=== PATIENT | female | born 1940 | race Caucasian/White ===

== ENCOUNTER 2018-10-12 18:02 | Inpatient (IN) | payer MEDICARE, OTHER ==
[~2018-10-12] VITALS: Ht 152.4 cm; Wt 49.7 kg
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
[2018-10-12] MEDS ORDERED: FEXOFENADINE H180 MG PO (19:52)
[2018-10-12] MEDS ORDERED: ATIVAN0.5 MG PO (19:52)
[2018-10-12] MEDS ORDERED: ASCORBIC ACID500 MG PO (19:52)
[2018-10-12] MEDS ORDERED: MELATONIN 3 MG1 TAB PO (19:54)
[2018-10-12] MEDS ORDERED: DEPAKOTE125 MG PO (19:54)
[2018-10-12] MEDS ORDERED: MULTI-DAY VITAM1 TAB PO (19:55)
[2018-10-12] MEDS ORDERED: VITAMIN B-6100 MG PO (19:55)
[2018-10-12] MEDS ORDERED: RISPERDAL0.25 MG PO (19:56)
[2018-10-12] MEDS ORDERED: SENNA LAXATIVE8.6 MG PO (19:57)
[2018-10-12] MEDS ORDERED: VITAMIN D31000 UNIT PO (19:57)
[2018-10-12] MEDS ORDERED: PROMOD LIQUID P30 M1 PO (19:58)
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
[2018-10-13 07:09] LABS: BASOPHILS 0.2 % (0-2); EOSINOPHILS 1.7 % (0-7); HEMOGLOBIN 12.3 g/dL (12-16); IMMATURE GRANULOCYTES 0.2 % (0-5); LYMPHOCYTES 33.7 % (15-50); MCH 30.8 pg (26.0-34.0); MCHC 34.2 g/dL (31.0-37.0); MEAN PLATELET VOLUME 9.8 fL (7.4-10.4); MONOCYTES 14.8 % (2-11); NEUTROPHILS 49.4 % (40-80); PLATELET COUNT 157 10x3/uL (130-400); RDW 14.4 % (11.5-14.5); WBC 6.3 10x3/uL (4.8-10.8)
[2018-10-13 08:46] LABS: ALBUMIN 2.7 g/dL (3.4-5.0); ALKALINE PHOSPHATASE 54 U/L (46-116); ALT (SGPT) 20 U/L (10-68); BILIRUBIN - TOTAL 0.49 mg/dL (0.2-1.3); CALC OSMOLALITY 280 mosm/kg (275-300); CALCIUM 8.4 mg/dL (8.5-10.1); CARBON DIOXIDE 28.1 mmol/L (21.0-32.0); CHLORIDE - SERUM 106 mmol/L (98-107); CHOL - HDL RATIO 2.1 ratio (2.3-4.1); CHOLESTEROL, TOTAL 122 mg/dL (0-200); CREATININE - SERUM 0.7 mg/dL (0.6-1.3); GLUCOSE 86 mg/dL (74-106); HDL CHOLESTEROL 59 mg/dL (32-96); LDL CHOLESTEROL 54 mg/dL (0-100); LDL-HDL RATIO 0.9 ratio (1.5-3.5); POTASSIUM - SERUM 3.6 mmol/L (3.5-5.1); PROTEIN - SERUM 5.7 g/dL (6.4-8.2); SODIUM 140 mmol/L (136-145); THYROID STIMULATING HORMONE 4.69 uIU/mL (0.36-3.74); TRIGLYCERIDE 45 mg/dL (30-200); UREA NITROGEN 20 mg/dL (7-18); VALPROIC ACID (DEPAKOTE) 16.1 ug/mL (50.0-100.0); eGFR NON AFRICAN AMERICAN 85 mL/min (90-120)
[2018-10-13 10:47] VITALS: BP 113/79
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
--- NOTE | 2018-10-13 14:30 | NUR ---
PATIENT BECAME AGGRESSIVE WITH STAFF DURING RE-DIRECTION.
[2018-10-13 20:08] VITALS: BP 102/70
--- NOTE | 2018-10-13 23:39 | NUR ---
B.) PATIENT IS ALERT AND ORIENTED TO SELF ONLY. SHE IS VERY CONFUSED AND HAS A DIFFICULT TIME WITH HER SPEECH. SHE SPEAKS IN NEOLGISMS AND OCCASIONALY HAS WORD SALAD. I.) REDIRECTED AND REORIENTED SEVERAL TIMES. R.) PATIENT REMAINS CONFUSED AND BECOME AGGITATED WHEN SHE CANNOT GET HER WORDS TO COME OUT APPROPRIATELY. WILL CONTINUE TO MONITOR. P.) CONTINUE PLAN OF CARE
[2018-10-14 06:09] LABS: RAPID PLASMA REAGIN Non Reactive (Non Reactive)
--- NOTE | 2018-10-14 09:36 | NUR ---
RECEIVED PATIENT IN DINING ROOM FOR B'FAST, QUIET, CALM, CONFUSED, BECOMES AGITATED WITH RE-DIRECTION. MEDS ADMIN PER ORDERS WITH COMPLETE MED COMPLIANCE NOTED. COOPERATIVE WITH PLAN OF CARE. CONT POC DIRECTED.
[2018-10-14 10:23] VITALS: BP 117/70
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
--- NOTE | 2018-10-14 14:13 | NUR ---
PACING ABOUT UNIT EXIT-SEEKING.
--- NOTE | 2018-10-14 18:43 | NUR ---
THIS NURSE ATTEMPTED REDIRECT PATIENT FROM ANOTHER PATIENT WHO WAS ON THE PHONE. PATIENT BEGAN TO BECOME AGRRESION WITH THIS NURSE. 2X STAFF MEMBERS ASSESSED PATIENT INTO CHAIR. HALDOL 2 MG AND ATIVAN 0.5 MG GIVEN IM PER DR. DE LA TORRE ORDER IN LD. PATIENT TOLERATED WELL. PATIENT IS IN RECLINER CHAIR WITH ALARM FOR SAFETY.
[2018-10-14 21:27] VITALS: BP 132/81
--- NOTE | 2018-10-14 21:28 | NUR ---
PATIENT IS CONFUSED, LABILE, DIFFUCULT WITH DIRECTIONS, RECEIVED PRN ON PREVIOUS SHIFT WITH GOOD RESULTS, COMPLIANT WITH MEDS. WILL FOLLOW POC
[2018-10-15 04:06] VITALS: Ht 152.4 cm; Wt 49.7 kg
[2018-10-15 07:35] VITALS: BP 120/80
[2018-10-15 09:04] LABS: T4 THYROXIN - FREE 1.21 ng/dL (0.76-1.46); THYROID STIMULATING HORMONE 2.91 uIU/mL (0.36-3.74)
--- NOTE | 2018-10-15 09:19 | NUR ---
REC'D PT SITTING IN CHAIR WITH EYES CLOSED. RESP EVEN AND NONLABORED. PT IS UNSTEADY DUE TO PRN MEDICATION ON 10/15/18. PT IS IN RECLINER CHAIR WITH CHAIR ALARM IN PLACE. NO ACUTE DISTRESS NOTED. MED COMPLIANT. WILL CONT PLAN OF CARE.
--- NOTE | 2018-10-15 11:59 | PN ---
PATIENT:MIGUEL ANGEL BECERRA MEDICAL RECORD: [id number] LOCATION:NeshaIvánANIBAL Cardenas112 ADMISSION DATE: 10/12/18 PROGRESS NOTE DATE OF SERVICE: 10/14/2018 SUBJECTIVE: The patient's case was discussed with staff. She has no new complaint. OBJECTIVE: The patient is very restless and difficult to redirect. She has virtually no insight about her situation. ASSESSMENT: No change in diagnoses. PLAN: The patient will be maintained on Zyprexa. I am going to discontinue the Risperdal and Depakote. I am going to start her on a low dose of Klonopin because of her anxiety. She will be monitored for clinical changes associated with its use. TRANSINT:[id number] Voice Confirmation ID: [id number] DOCUMENT ID: [id number] ODETTE DE LA TORRE MD at 1159 CC: [id number] DICTATION DATE: 10/14/18 1205 FELT MACHINE MECHANIC: 10/14/18 1313 ADM IN [address] [place] [address]
--- NOTE | 2018-10-15 20:02 | NUR ---
PATIENT RECEIVED ATIVAN IM DUE TO EXTREME ANXIETY AND HITTING, KICKING AND SCRATCHING MHT. WILL MONITOR.
--- NOTE | 2018-10-15 21:45 | NUR ---
PATIENT HAD GOOD RESULTS FROM PRN ATIVAN INJECTION, PATIENT IS RESTING WELL. WILL FOLLOW POC
[2018-10-15 21:54] VITALS: BP 130/70
--- NOTE | 2018-10-16 07:30 | NUR ---
REC'D PT IN RECLINING CHAIR. RESPONDS TO VERBAL STIMULI. CALM AND COOPERATIVE WITH ASSESSMENT. MED COMPLIANT. NO AGGRESSION NOTED. WILL CPOC.
[2018-10-16 08:01] VITALS: BP 108/64
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
[2018-10-16 20:47] VITALS: BP 130/75
--- NOTE | 2018-10-16 21:24 | NUR ---
RECEIVED IN DAYROOM. SITTING IN A RECLINING CHAIR. RESLTESS. ATTEMPTS TO STAND WITHOUT ASSIST. NO SIGNS OF AGGRESSION. REDIRECT AND REORIENT NEEDED. CONTINUES TO SIT IN RECLINER. CONTINUE PLAN OF CARE
[2018-10-17 07:00] VITALS: BP 120/82
--- NOTE | 2018-10-17 09:52 | NUR ---
PT IS AWAKE AND ALERT TO PERSON ONLY. CALM AND COOPERATIVE WITH ASSESSMENT. MED COMPLIANT. FALL PRECAUTIONS IN PLACE. WILL CPOC.
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
--- NOTE | 2018-10-17 19:31 | NUR ---
PT IS VERY AGGRESSIVE WITH STAFF. PT IS HITTING, KICKING, AND YELLING AT STAFF. UNABLE TO REDIRECT PER STAFF. PRN ATIVAN 0.5 MG IM GIVEN PER DR. DE LA TORRE. WILL CONTINUE TO MONITOR.
--- NOTE | 2018-10-17 21:04 | NUR ---
RECEIVED IN DAYROOM. SITTING IN A CHAIR WITH PEERS AT HER SIDE. CALM AND COOPERATIVE WITH CARE AND ASSESSMENT. NO SIGNS OF AGGRESSION. REDIRECT AND REORIENT NEEDED. CONTINUES TO SIT QUIETLY. CONTINUE PLAN OF CARE
[2018-10-17 22:23] VITALS: BP 103/63
[2018-10-18 08:30] VITALS: BP 109/67
--- NOTE | 2018-10-18 09:30 | NUR ---
RECEIVED PATIENT IN DINING ROOM FOR B'FAST, VERY DROWSY, QUIET. MEDS ADMIN PER ORDERS WITH COMPLETE MED COMPLIANCE NOTED. COOPERATIVE WITH CARE AT THIS TIME, NO AGGRESSION NOTED. CONT POC INCLUDING MEDS AND GROUP THERAPY ORDERED.
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
--- NOTE | 2018-10-18 13:22 | NUR ---
PATIENT KICKING STAFF AND YELLING, UNABLE TO RE-DIRECT X 3 ATTEMPTS. ATIVAN 0.5 MG ADMIN IM. JON WELL.
--- NOTE | 2018-10-18 20:17 | NUR ---
RECEIVED IN DAYROOM. SITTING IN A CHAIR WITH PEERS AT HER SIDE. SOCIALIZING AT TIMES. CALM AND COOPERATIVE WITH CARE AND ASSESSMENT. NO SIGNS OF AGGRESSION. REDIRECT AND REORIENT NEEDED. RESTING QUIETLY IN A CHAIR AT THIS TIME. CONTINUE PLAN OF CARE
[2018-10-18 20:23] VITALS: BP 114/69
--- NOTE | 2018-10-19 10:17 | NUR ---
RECEIVED PATIENT IN DINING ROOM FOR B'FAST, ALERT, CALM, CONFUSED, PACING, UNABLE TO SPEAK COMPLETE SENTENCES. NO AGGRESSION. MEDS ADMIN PER ORDERS WITH COMPLETE MED COMPLIANCE NOTED. COMPLIANT WITH CARE, REDIRECTABLE. CONT POC DIRECTED.
[2018-10-19 10:59] VITALS: BP 110/70
--- NOTE | 2018-10-19 15:32 | PN ---
PATIENT:MIGUEL ANGEL BECERRA MEDICAL RECORD: [id number] LOCATION:ARPIT Cardenas112 ADMISSION DATE: 10/12/18 PROGRESS NOTE DATE OF SERVICE: 10/18/2018 OBJECTIVE: The patient slept well last night. She ate reasonably well yesterday. ASSESSMENT: No change in diagnoses. PLAN: The patient is a little sedated today. I am going to hold the Klonopin today and we will monitor her for behavioral changes. TRANSINT:[id number] Voice Confirmation ID: [id number] DOCUMENT ID: [id number] ODETTE DE LA TORRE MD at 1532 CC: [id number] DICTATION DATE: 10/18/18 1124 CANVAS SHRINKER: 10/18/18 1138 ADM IN [id number] [place] [id number]
--- NOTE | 2018-10-19 21:35 | NUR ---
PATIENT IS VERY CONFUSED. CROSSES BOUNDARIES. HAS TO BE REDIRECTED CONSTANTLY. CRUSHED MEDS. CAN NOT MAKE NEEDS KNOWN.
--- NOTE | 2018-10-20 10:30 | NUR ---
Team Treatment Review: Diet: Regular Diet PO Intake: 46% per 9 meals Wt: 107 on 10/16 (recommend new recorded wt) Meds: Megace, Sennosides, Vit B6, MVI, Vit D, Vit C -Will provide Ensure with meals -Will Monitor Closely -Clinical Deititian Following
[2018-10-20 10:44] VITALS: BP 105/66
--- NOTE | 2018-10-20 11:21 | PN ---
PATIENT:MIGUEL ANGEL BECERRA MEDICAL RECORD: [id number] LOCATION:ARPIT Cardenas112 ADMISSION DATE: 10/12/18 PROGRESS NOTE DATE OF SERVICE: 10/19/2018 SUBJECTIVE: The patient's case was discussed with staff. She has no new complaint. OBJECTIVE: The patient is in good behavioral control. She is quite impaired. Unfortunately, yesterday, she was not in good behavioral control and did require p.r.n. medication because of her agitation. ASSESSMENT: No change in diagnoses. PLAN: I am going to start the patient on a low dose of Neurontin to assist with her underlying disruptive behaviors. She will be monitored carefully for changes associated with it. Her long-term prognosis is guarded. TRANSINT:[id number] Voice Confirmation ID: [id number] DOCUMENT ID: [id number] ODETTE DE LA TORRE MD at 1121 CC: [id number] DICTATION DATE: 10/19/18 1634 IRRIGATION INSTALLATION SPECIALIST: 10/19/18 2311 ADM IN [address] [place] [address]
--- NOTE | 2018-10-20 18:28 | NUR ---
IS CONFUSED AND DISORIENTED.WAS UNABLE TO TELL ME HER NAME.HAS BEEN COMPLIANT WITH STAFF AND MEDS.WAS OBSERVED PULLING PANTS OFF IN DAYROOM,WAS RESISTANT TO REDIRECTING BUT DID EVENTUALLY COMPLY.WILL CONTINUE WITH CURRENT PLAN OF CARE ,MONITOR FOR CHANGES AND SAFETY.
--- NOTE | 2018-10-20 23:21 | NUR ---
PATIENT WANDERING INTO OTHER PATIENT'S ROOMS, HAVING TO REDIRECT CONSTANTLY, SHE'S ARGUMENTATIVE, SPITTING IN STAFF'S FACE, HITTING STAFF AND RECEIVED ATIVAN/HALDOL IM. TOLERATED WELL
[2018-10-21 08:23] VITALS: BP 113/66
--- NOTE | 2018-10-21 11:44 | NUR ---
PATIENT SITTING IN CHAIR WITH EYES CLOSED. NO ACUTE DISTRESS NOTED. NO BEHAVIORS NOTED THIS SHIFT. PT ASSESSMENT, VITALS, AND MEDICATION COMPLIANT. PT NEEDS ASSISTANCE WITH ADL'S. WILL CONT PLAN OF CARE.
--- NOTE | 2018-10-21 15:14 | PN ---
PATIENT:MIGUEL ANGEL BECERRA MEDICAL RECORD: [id number] LOCATION:ARPIT JeffriesIván112 ADMISSION DATE: 10/12/18 PROGRESS NOTE DATE OF SERVICE: 10/20/2018 SUBJECTIVE: The patient's case was discussed with staff. She has no new complaint. OBJECTIVE: The patient denies intent to harm herself or others. She is generally tolerating her medicines well. She did require some p.r.n. medication last night because of agitation. ASSESSMENT: No change in diagnoses. PLAN: Some medication changes were made on this patient yesterday. I do not think they have had an opportunity to become effective and based upon this I am going to maintain her current medications today. TRANSINT:[id number] Voice Confirmation ID: [id number] DOCUMENT ID: [id number] ODETTE DE LA TORRE MD at 1514 CC: [id number] DICTATION DATE: 10/20/18 1257 PIE FILLER: 10/20/18 1318 ADM IN [id number] [place] [address]
--- NOTE | 2018-10-21 18:04 | NUR ---
THIS NURSE ADMINISTERED ATIVAN 0.5 MG PO FOR ANXIETY. PT BEGAN TO PACE AND BECOME COMBATIVE WITH STAFF DURING REDIRECTION. STAFF ATTEMPTED 3X TO REDIRECT PATIENT. WILL REASSES Q 1 HOUR FOR EFFECTIVENESS.
--- NOTE | 2018-10-21 18:18 | NUR ---
PATIENT HAS A SMALL SKIN TEAR TO HER LEFT ANTERIOR HAND. NURSE COVERED WITH A BANDAID.
[2018-10-21 20:50] VITALS: BP 101/69
--- NOTE | 2018-10-22 03:30 | NUR ---
B) patient is alert and oriented to self, intrusive with staff, very confused and unable to follow instruction I) Administered scheduled medications as ordered, monitored for safety, redirected as needed, R) Medication compliant, sleepinf quietly i her bed at this time, P) Continue plan of care.
[2018-10-22 08:06] VITALS: BP 119/75
--- NOTE | 2018-10-22 11:16 | PN ---
PATIENT:MIGUEL ANGEL BECERRA MEDICAL RECORD: [id number] LOCATION:ARPIT CardenasKristopher ADMISSION DATE: 10/12/18 PROGRESS NOTE DATE OF SERVICE: 10/21/2018 SUBJECTIVE: The patient's case was discussed with staff. She has no new complaint. OBJECTIVE: The patient was somewhat agitated last night, but today is significantly better. She did receive a p.r.n. dose of medication. ASSESSMENT: No change in diagnoses. PLAN: I am going to increase the patient's Neurontin to 400 mg twice daily. Hopefully, this will assist her with some mood lability. Her long-term prognosis is guarded. TRANSINT:[id number] Voice Confirmation ID: [id number] DOCUMENT ID: [id number] ODETTE DE LA TORRE MD at 1116 CC: [id number] DICTATION DATE: 10/21/18 1521 SPECIAL AGENT GROUP INSURANCE: 10/21/18 1527 ADM IN [id number] [place] [address]
--- NOTE | 2018-10-22 14:07 | NUR ---
IS ABLE TO TELL ME HER FIRST NAME TODAY.DISORIENTED TO PLACE,TIME,SITUATION.COMPLIANT WITH STAFF AND MEDS.NO AGGRESSION OBSERVED TODAY.WILL CONTINUE WITH CURRENT PLAN OF CARE,MONITOR FOR SAFETY AND CHANGES.
[2018-10-22 20:40] VITALS: BP 104/59
[2018-10-23 01:06] LABS: APPEARANCE HAZY (CLEAR); BACTERIA MANY /hpf (NONE SEEN); BILIRUBIN NEGATIVE (NEGATIVE); COLOR YELLOW (YELLOW); EPITHELIAL CELLS 0-5 /hpf (0-5); GLUCOSE NEGATIVE (NEGATIVE); KETONE SMALL mg/dL (NEGATIVE); NITRITE NEGATIVE (NEGATIVE); PROTEIN TRACE mg/dL (NEGATIVE); SPECIFIC GRAVITY 1.015 (1.005-1.020); UROBILINOGEN NORMAL (NORMAL); WHITE CELLS - URINE >50 /hpf (0-5)
--- NOTE | 2018-10-23 01:46 | NUR ---
B) Patient is alert and oriented to self, follows simple instructions, echos any question or statement directed to her at times, I) Administered scheduled medications as ordered, monitored for safety R) Mediation compliant, sleeping quietly in hallway because she she refused to sleep in her bed, P) Continue plan of care.
[2018-10-23 07:00] VITALS: BP 110/72
--- NOTE | 2018-10-23 07:25 | NUR ---
BLANCHABLE REDNESS NOTED ON COCCYX. APPLIED BABY POWDER
--- NOTE | 2018-10-23 11:00 | NUR ---
ALERT, CALM, COOPERATIVE, MED COMPLIANT, NO AGGRESSION. CONT POC DIRECTED INCLUDING MEDS AND GROUP THERAPY DIRECTED.
--- NOTE | 2018-10-23 13:34 | PN ---
PATIENT:MIGUEL ANGEL BECERRA MEDICAL RECORD: [id number] LOCATION:ARPIT CardenasKristopher ADMISSION DATE: 10/12/18 PROGRESS NOTE DATE OF SERVICE: 10/22/2018 SUBJECTIVE: The patient's case was discussed with staff. She has very limited insight and is severely impaired. She is not eating well. ASSESSMENT: No change in diagnoses. PLAN: The patient has been started on Megace to stimulate her appetite. So far has not had any appreciable affect. TRANSINT:[id number] Voice Confirmation ID: [id number] DOCUMENT ID: [id number] ODETTE DE LA TORRE MD at 1334 CC: [id number] DICTATION DATE: 10/22/18 1119 CAR REFINISHER: 10/22/18 1139 ADM IN [id number] [place] [address]
--- NOTE | 2018-10-23 21:33 | NUR ---
B.) PT IS WANDERING AND RESTLESS. SHE IS PREOCCUPIED WITH FOLDING AND UNFOLDING BLANKETS WELL CARING FOR OTHERS AROUND HER. I.) REDIRECT AND REORIENT OFTEN. OFFERED MEDICATION FOR ANXIETY. R.) REMAINS CONFUSED DESPITE ATTEMPTS TO REORIENT. REFUSED ANXIETY MEDICATION AT THIS TIME. P.) CONTINUE PLAN OF CARE
[2018-10-24 07:00] VITALS: BP 125/73
--- NOTE | 2018-10-24 14:00 | NUR ---
PT IS AWAKE AND ALERT TO PERSON ONLY. NO AGGRESSION NOTED. CALM AND COOPERATIVE WITH ASSESSMENT. MED COMPLIANT. REDIRECT AND REORIENT NEEDED. FALL PRECAUTIONS IN PLACE. WILL CPOC.
[2018-10-24 20:27] VITALS: BP 115/69
--- NOTE | 2018-10-24 21:00 | NUR ---
RECEIVED IN DAYROOM. SITTING WITH STAFF AND PEERS. CALM AND COOPERATIVE WITH CARE AND ASSESSMENT. NO SIGNS OF AGGRESSION. REDIRECT AND REORIENT. TRANSFERE TO BEDROOM AREA. PACING YEH AT THIS TIME. CONTINUE PLAN OF CARE
[2018-10-25 07:00] VITALS: BP 129/84
--- NOTE | 2018-10-25 07:31 | NUR ---
REC'D PT PACING IN HALLWAY BY NURSES STATION. PT ALERT TO PERSON ONLY. CALM AND COOPERATIVE WITH ASSESSMENT. NO BEHAVIORS NOTED AT THIS TIME. PT IS PLEASANTLY CONFUSED. REDIRECT AND REORIENT NEEDED. MED COMPLIANT. FALL PRECAUTIONS IN PLACE. WILL CPOC.
--- NOTE | 2018-10-25 14:05 | PN ---
PATIENT:MIGUEL ANGEL BECERRA MEDICAL RECORD: [id number] LOCATION:KESHAWNYeyo NeshaIvánKristopher ADMISSION DATE: 10/12/18 PROGRESS NOTE DATE OF SERVICE: 10/23/2018 SUBJECTIVE: The patient's case was discussed with staff. She has no new complaint. OBJECTIVE: The patient is in good behavioral control. She has poor insight about her condition. She is tolerating her medicines well. ASSESSMENT: No change in diagnoses. PLAN: Current medicines have been reviewed and will be maintained. The patient is much more cooperative, but unfortunately not at all less confused. TRANSINT:[id number] Voice Confirmation ID: [id number] DOCUMENT ID: [id number] ODETTE DE LA TORRE MD at 1405 CC: [id number] DICTATION DATE: 10/23/18 1350 IT SOLUTIONS ARCHITECT: 10/23/18 1743 ADM IN [place] [id number] [place] [address]
--- NOTE | 2018-10-25 14:05 | PN ---
PATIENT:MIGUEL ANGEL BECERRA MEDICAL RECORD: [id number] LOCATION:ARPIT Guadalupe ADMISSION DATE: 10/12/18 PROGRESS NOTE DATE OF SERVICE: 10/24/2018 SUBJECTIVE: The patient's case was discussed with staff. She has no new complaint. OBJECTIVE: The patient is in good behavioral control. She has pretty limited insight about her condition. ASSESSMENT: No change in diagnoses. PLAN: The patient continues to be combative with personal care. This may not be something that is reasonably treatable with pharmacology, but I would like to try to make her more manageable in a retirement setting. Based on that line of thinking, I am going to increase her dose of Neurontin slightly. TRANSINT:[id number] Voice Confirmation ID: [id number] DOCUMENT ID: [id number] ODETTE DE LA TORRE MD at 1405 CC: [id number] DICTATION DATE: 10/24/18 1415 MACHINING ENGINEER: 10/24/18 1501 ADM IN [address] [id number] [place] [address]
--- NOTE | 2018-10-25 14:24 | NUR ---
Nutrition Follow-up: Diet: Regular + Ensure with meals PO: ~39% avg x last 5 days Meds: goldy, others reviewed Labs reviewed Wt: 109# (10/23/18)- wt trend stable since admit Last BM 10/25/[address] Following
[2018-10-25 18:52] VITALS: BP 103/67
--- NOTE | 2018-10-25 19:15 | NUR ---
RECEIVED IN DAYROOM. WALKING AREA ROOM. CALM AND COOPERATIVE WITH CARE AND ASSESSMENT. NO SIGNS OF AGGRESSION. VERY CONFUSED. REDIERCT AND REORIENT NEEDED. WALKING IN HALLWAYS IN BEDROOM AREA AT THIS TIME. CONTINUE PLAN OF CARE
[2018-10-26 09:41] VITALS: BP 100/67
--- NOTE | 2018-10-26 15:08 | NUR ---
PT IS AWAKE AND ALERT TO PERSON NONLY. CALM AND COOPERATIVE WITHN ASSESSMENT. MED COMPLIANT. REDIRECT AND REORIENT NEEDED. FALL PRECAUTIONS IN PLACE. WILL CPOC.
--- NOTE | 2018-10-26 15:09 | PN ---
PATIENT:MIGUEL ANGEL BECERRA MEDICAL RECORD: [id number] LOCATION:NeshaMAGIYeyo CardenasKristopher ADMISSION DATE: 10/12/18 PROGRESS NOTE DATE OF SERVICE: 10/25/2018 SUBJECTIVE: The patient's case was discussed with staff. She has no new complaint. OBJECTIVE: The patient is not eating very well. She is receiving Megace to assist with appetite stimulation. Unfortunately, she continues to be problematic at bedtime. I am going to prescribe a low dose of trazodone to assist with the sleep consolidation. ASSESSMENT: No change in diagnoses. PLAN: Current medicines have been reviewed and will be maintained. I am going to add trazodone to the regimen. TRANSINT:[id number] Voice Confirmation ID: [id number] DOCUMENT ID: [id number] ODETTE DE LA TORRE MD at 1509 CC: [id number] DICTATION DATE: 10/25/18 1422 RADIO PERSONALITY: 10/25/18 1612 ADM IN [place] [id number] [place] [address]
[2018-10-26 19:39] VITALS: BP 101/56
--- NOTE | 2018-10-26 20:47 | NUR ---
B) Patient is alert and oriented to self, very confused and wanders at times, I) Administered scheduled medications as ordered, monitored for safety R) Mediation compliant, pleasant and confused P) Continue plan of care.
--- NOTE | 2018-10-27 09:12 | NUR ---
Team Treatment Review: Diet: Regular Diet, Ensure w/ Meals PO intake: 59% per 8 Meals Wt: 155 lbs on Oct 23 BM: X 2 on Oct 26 Sig Meds: Megace, Vit B6, MVI, Vit C Goals: Continue Regular Diet with ensure as tolerated PO Intake >/= 75% estimated energy expenditure Clinical Dietitian Following
--- NOTE | 2018-10-27 11:37 | NUR ---
RECEIVED PATIENT IN DINING ROOM FOR B'FAST, CALM, CONFUSED, COOPERATIVE, NO AGGRESSION. MEDS ADMIN PER ORDERS WITH COMPLETE MED COMPLIANCE NOTED. CONT PLAN OF CARE DIRECTED.
[2018-10-27 13:13] VITALS: BP 132/68
--- NOTE | 2018-10-27 15:14 | PN ---
PATIENT:MIGUEL ANGEL BECERRA MEDICAL RECORD: [id number] LOCATION:KESHAWNYeyo CardenasKristopher ADMISSION DATE: 10/12/18 PROGRESS NOTE DATE OF SERVICE: 10/26/2018 SUBJECTIVE: The patient's case was discussed with staff. She has no new complaint. OBJECTIVE: The patient was agitated today and required p.r.n. medication. She has no recollection of this. She looks a little sedated when I interview her, probably because of the p.r.n. medication she received. ASSESSMENT: No change in diagnoses. PLAN: I am going to start the patient on a low dose of Klonopin to assist with her anxiety. She will be monitored for clinical changes associated with its use. Her long-term prognosis is guarded. TRANSINT:[id number] Voice Confirmation ID: [id number] DOCUMENT ID: [id number] ODETTE DE LA TORRE MD at 1514 CC: [id number] DICTATION DATE: 10/26/18 165 PRESS MAINTAINER: 10/26/18 1939 ADM IN [place] [address] [place] [address]
[2018-10-28 05:19] VITALS: BP 103/77
[2018-10-28 07:53] VITALS: BP 132/60
--- NOTE | 2018-10-28 16:29 | PN ---
PATIENT:MIGUEL ANGEL BECERRA MEDICAL RECORD: [id number] LOCATION:ARPIT CardenasKristopher ADMISSION DATE: 10/12/18 PROGRESS NOTE DATE OF SERVICE: 10/27/2018 SUBJECTIVE: The patient's case was discussed with staff. She has no new complaint. OBJECTIVE: The patient is in good behavioral control, but severely impaired. She is only oriented to person. ASSESSMENT: No change in diagnoses. PLAN: Supportive and educational interventions were made. TRANSINT:[id number] Voice Confirmation ID: [id number] DOCUMENT ID: [id number] ODETTE DE LA TORRE MD at 1629 CC: [id number] DICTATION DATE: 10/28/[address] MAGISTRATE: 10/28/18 1559 ADM IN [address] [address]
[2018-10-28 21:00] VITALS: BP 110/69
--- NOTE | 2018-10-28 21:49 | NUR ---
ATIVAN/HALDOL GIVEN FOR EXTREME AGITATION (BITING, HITTING, PULLING HAIR). PT. TOLERATED WELL. WILL MONITOR
--- NOTE | 2018-10-29 02:50 | NUR ---
PATIENT IS SLEEPING, RESPONDED WELL TO PRN EARLIER. WILL FOLLOW POC
--- NOTE | 2018-10-29 09:30 | PN ---
PATIENT:MIGUEL ANGEL BECERRA MEDICAL RECORD: [id number] LOCATION:NeshaMAGIYeyo CardenasKristopher ADMISSION DATE: 10/12/18 PROGRESS NOTE DATE OF SERVICE: 10/28/2018 SUBJECTIVE: The patient's case was discussed with staff. She has no new complaint. OBJECTIVE: The patient denies intent to harm herself or others. She is clearly very impaired. ASSESSMENT: No change in diagnoses. PLAN: Current medicines have been reviewed. I am going to increase the Klonopin slightly secondary to her agitation. Her long-term prognosis is guarded. TRANSINT:[id number] Voice Confirmation ID: [id number] DOCUMENT ID: [id number] ODETTE DE LA TORRE MD at 0930 CC: [id number] DICTATION DATE: 10/28/18 170 CAD DESIGN ENGINEER: 10/28/18 223 ADM IN [place] [id number] [place] [address]
[2018-10-29 13:07] VITALS: BP 118/71
--- NOTE | 2018-10-29 18:43 | NUR ---
VERY CONFUSED,ORIENTED TO SELF ONLY.HAS BEEN RESTLESS TODAY,OFTEN TRIES TO STAND WITHOUT ASSIST.IS COMPLIENT WITH MEDS.NO AGGRESSION OBSERVED THIS SHIFT.WILL CONTINUE WITH CURRENT PLAN OF CARE,MONITOR FOR CHAANGES AND SAFETY.
--- NOTE | 2018-10-30 02:19 | NUR ---
PATIENT IS VERY CONFUSED, AGITATED MOST OF THE TIME, HAS TO BE REDIRECTED OFTEN. COMPLIANT WITH MEDS. WILL FOLLOW POC
[2018-10-30 03:11] VITALS: BP 107/59
[2018-10-30 10:31] VITALS: BP 116/77
--- NOTE | 2018-10-30 10:49 | PN ---
PATIENT:MIGUEL ANGEL BECERRA MEDICAL RECORD: [id number] LOCATION:KESHAWNYeyo CardenasKristopher ADMISSION DATE: 10/12/18 PROGRESS NOTE DATE OF SERVICE: 10/29/2018 SUBJECTIVE: The patient's case was discussed with staff. She has no new complaint. OBJECTIVE: The patient has not been aggressive today. She is eating marginally well. She has limited insight about her situation and is only oriented to person. ASSESSMENT: No change in diagnoses. PLAN: Supportive and educational interventions were made. Long-term prognosis is guarded. TRANSINT:[id number] Voice Confirmation ID: [id number] DOCUMENT ID: [id number] ODETTE DE LA TORRE MD at 1049 CC: [id number] DICTATION DATE: 10/29/18 1130 GOLD BLOWER: 10/29/18 1400 ADM IN [id number] [place] [address]
--- NOTE | 2018-10-30 15:19 | NUR ---
PATIENT SITTING IN CHAIR. RESP EVEN AND NONLABORED. NO ACUTE DISTRESS NOTED. NO BEHAVIORS NOTED THIS SHIFT. PT IS COMPLIANT WITH MEDS, ASSESSMENTS, VITALS. PT IS EASY TO REDIRECT AT TIMES AND WITH ADL'S. PT AMBULATES WITH ASSISTANCE. CHAIR ALARM IN PLACE AND ACTIVE.
[2018-10-30 20:00] VITALS: BP 124/70
--- NOTE | 2018-10-31 00:07 | NUR ---
RECEIVED IN DAYROOM. SITTING IN A RECLINER WITH STAFF AND PEERS AT HER SIDE. VERY CONFUSED. ATTEMPTS TO STAND WITHOUT ASSIST. WILDER ALARM SOUNDING. NO SIGNS OF AGGRESSION. REDIRECT AND REORIENT NEEDED. RESTING IN BED WITH EYES CLOSED AT THIS TIME. CONTINUE PLAN OF CARE
[2018-10-31 07:00] VITALS: BP 99/66
--- NOTE | 2018-10-31 15:06 | NUR ---
AWAKE AND ALERT, WITH CONFUSION NOTED. CALM AND COOPERATIVE WITH CARE AND ASSESSMENT. MEDICATION COMPLIANT. NO AGGRESSION NOTED. REDIRECT AND REORIENT NEEDED. WILL CONTINUE PLAN OF CARE.
--- NOTE | 2018-10-31 16:47 | PN ---
PATIENT:MIGUEL ANGEL BECERRA MEDICAL RECORD: [id number] LOCATION:NeshaMAGIYeyo CardenasKristopher ADMISSION DATE: 10/12/18 PROGRESS NOTE DATE OF SERVICE: 10/30/2018 SUBJECTIVE: The patient's case was discussed with staff. She has no new complaint. OBJECTIVE: The patient denies intent to harm herself or others. She tolerates her medicines well. ASSESSMENT: No change in diagnoses. PLAN: Supportive and educational interventions were made. Long-term prognosis is guarded. TRANSINT:[id number] Voice Confirmation ID: [id number] DOCUMENT ID: [id number] ODETTE DE LA TORRE MD at 1647 CC: [id number] DICTATION DATE: 10/30/18 1202 CHEMICAL HANDLER: 10/30/18 1520 ADM IN [place] [id number]
[2018-10-31 20:03] VITALS: BP 117/79
--- NOTE | 2018-10-31 21:26 | NUR ---
B.) PT IS ALERT AND ORIENTED TO SELF ONLY. SHE DOES WANDER AT TIMES. I.) PROVIDED PM MEDICATIONS AND REDIRECTED NEEDED. R.) COMPLIANT WITH MEDICATIONS AND STILL REMAINS PLEASANTLY CONFUSED. P). CONTINUE PLAN OF CARE
[2018-11-01 07:00] VITALS: BP 116/84
--- NOTE | 2018-11-01 10:10 | NUR ---
PATIENT IS VERY CONFUSED. CALM AND COOPERATIVE WITH CARE AND ASESSMENT. HAS TO BE REDIRECTED FRQUENTLY. COMPLIANT WITH MEDICATIONS. WILL CONTINUE POC.
--- NOTE | 2018-11-01 14:57 | PN ---
PATIENT:MIGUEL ANGEL BECERRA MEDICAL RECORD: [id number] LOCATION:ARPIT JeffriesIvánKristopher ADMISSION DATE: 10/12/18 PROGRESS NOTE DATE OF SERVICE: 10/31/2018 SUBJECTIVE: The patient's case was discussed with staff. She has no new complaint. OBJECTIVE: The patient is not eating very well, but she is receiving Megace. She is sleeping better. She is ambulating reasonably well, although she is at high fall risk. ASSESSMENT: No change in diagnoses. PLAN: Current medicines have been reviewed and will be maintained. I anticipate she can be transitioned out of the hospital soon if placement is still set and this level of behavior continues. TRANSINT:[id number] Voice Confirmation ID: [id number] DOCUMENT ID: [id number] ODETTE DE LA TORRE MD at 1457 CC: [id number] DICTATION DATE: 10/31/18 170 CHISELER HEAD: 10/31/18 192 ADM IN [facility] [address] [place] [address]
[2018-11-01] MEDS ORDERED: NEURONTIN 300300 MG PO (15:16)
[2018-11-01] MEDS ORDERED: DONEPEZIL HCL5 MG PO (15:16)
[2018-11-01] MEDS ORDERED: OMNICEF300 MG PO (15:16)
[2018-11-01] MEDS ORDERED: GEODON20 MG PO (15:17)
[2018-11-01] MEDS ORDERED: KLONOPIN0.5 MG PO (15:17)
[2018-11-01] MEDS ORDERED: FLORAJEN3 CAPS460 MG PO (15:17)
[2018-11-01] MEDS ORDERED: Megace ES [CHEMO] PO (15:18)
--- NOTE | 2018-11-01 20:10 | NUR ---
RECEIVED PATIENT AMBUALTORY ON UNIT. DISORIENTED X3. WANDERS HALLS LOOKING FOR HER HOUSE. INTRUSSIVE AND WILL TOUCH OTHER PEERS. NO VERBAL INTERACTION WITH OTHERS. COOPERATIVE WITH VS. ADMINISTER MEDS Q SHIFT AND MONITOR COMPLIANCE. REORIENT Q SHIFT AND NEEDED. MED COMPLIANT. POOR REORIENTATION DUE TO IMPAIRED ABILITY TO COMPREHEND AND MAINTAIN INFORMATION. CONTINUE POC AND PROVIDE SAFE ENVIRONMENT.
[2018-11-01 21:25] VITALS: BP 112/63
--- NOTE | 2018-11-02 09:00 | NUR ---
PATIENT IS SLEEPY, WITH CONFUSION NOTED. CALM AND COOPERATIVE WITH CARE AND ASSESSMENT. NEEDS ASSISTANCE WITH AMBULATING. WILL CONTINUE TO MONITOR,.
[2018-11-02 10:13] VITALS: BP 125/72
--- NOTE | 2018-11-02 12:57 | NUR ---
RECEIVED PT IN DAYROOM, ALERT, SLIGHTLY DROWSY, CALM, COOPERATIVE. MEDS ADMIN PER ORDERS WITH FULL COMPLIANCE NOTED. COOPERATIVE WITH STAFF AND POC. PT TO DISCHARGE LATER THIS SHIFT.
--- NOTE | 2018-11-02 14:00 | NUR ---
DISCHARGE PAPERWORK COMPLETED AND FAXED. LEFT WITH AFTER SCHOOL PROGRAM ASSISTANT FOR [address] VIA WHEELCHAIR.
--- NOTE | 2018-11-02 14:55 | PN ---
PATIENT:MIGUEL ANGEL BECERRA MEDICAL RECORD: [id number] LOCATION:ARPIT JeffriesIvánKristopher ADMISSION DATE: 10/12/18 PROGRESS NOTE DATE OF SERVICE: 11/01/2018 SUBJECTIVE: The patient's case was discussed with staff. She has no new complaint. OBJECTIVE: The patient is in good behavioral control with limited insight about her condition. She tolerates her medicines well. ASSESSMENT: No change in diagnoses. PLAN: The patient will be transitioned out of the hospital tomorrow morning. Her long-term prognosis is guarded. TRANSINT:[id number] Voice Confirmation ID: [id number] DOCUMENT ID: [id number] ODETTE DE LA TORRE MD at 1455 CC: [id number] DICTATION DATE: 11/01/18 1509 THERAPEUTIC DIETITIAN: 11/01/18 1614 ADM IN [place] [address] [place] [address]
--- NOTE | 2018-11-03 13:17 | PN ---
PATIENT:MIGUEL ANGEL BECERRA MEDICAL RECORD: [id number] LOCATION:KESHAWNYeyo Cardenas112 ADMISSION DATE: 10/12/18 PROGRESS NOTE DATE OF SERVICE: 11/02/2018 SUBJECTIVE: The patient's case was discussed with staff. She has no new complaint. OBJECTIVE: The patient denies intent to harm herself or others. She is tolerating her medicines well. No change in diagnoses. PLAN: The patient can be reasonably transitioned out of the hospital today. No evidence of acute or direct dangerousness. She certainly needs 21-xogg-w-day supervision and follow up will be with her care home physician. TRANSINT:[id number] Voice Confirmation ID: [id number] DOCUMENT ID: [id number] ODETTE DE LA TORRE MD at 1317 CC: [id number] DICTATION DATE: 11/02/18 1520 FINANCE ASSISTANT: 11/02/18 1747 DIS IN 11/02/18 [facility] [address] [place] [address]
== END 2018-11-02 14:00 | DRG 57 ==
LOC: D.PSYCH 18:02
PROVIDERS: Family Medicine; ADMIT Psychiatry & Neurology Psychiatry; ATTEND Psychiatry & Neurology Psychiatry
DX: G30.9 Alzheimer's disease, unspecified (principal); F02.81 Dementia in other diseases classified elsewhere, unspecified severity, with behavioral disturbance; N39.0 Urinary tract infection, site not specified; E53.8 Deficiency of other specified B group vitamins; K21.9 Gastro-esophageal reflux disease without esophagitis; J30.9 Allergic rhinitis, unspecified; F41.9 Anxiety disorder, unspecified; R63.0 Anorexia; G47.00 Insomnia, unspecified; K59.04 Chronic idiopathic constipation; E55.9 Vitamin D deficiency, unspecified

== ENCOUNTER 2018-11-12 14:30 | Emergency (ER) | payer MEDICARE, OTHER, MEDICAID ==
[~2018-11-12] VITALS: Ht 152.4 cm; Wt 47.7 kg
[~2018-11-12 14:30] MED LIST: ASCORBIC ACID500 MG PO; ATIVAN0.5 MG PO; DEPAKOTE125 MG PO; DONEPEZIL HCL5 MG PO; FEXOFENADINE H180 MG PO; FLORAJEN3 CAPS460 MG PO; GEODON20 MG PO; KLONOPIN0.5 MG PO; MELATONIN 3 MG1 TAB PO; MULTI-DAY VITAM1 TAB PO; Megace ES [CHEMO] PO; NEURONTIN 300300 MG PO; OMNICEF300 MG PO; PROMOD LIQUID P30 M1 PO; RISPERDAL0.25 MG PO; SENNA LAXATIVE8.6 MG PO; VITAMIN B-6100 MG PO; VITAMIN D31000 UNIT PO
[2018-11-12 14:40] VITALS: Ht 152.4 cm; Wt 47.7 kg
[2018-11-12 16:37] VITALS: BP 138/82
== END 2018-11-12 16:39 ==
LOC: D.ER 14:30
DX: S00.83XA Contusion of other part of head, initial encounter (principal); Y92.129 Unspecified place in nursing home as the place of occurrence of the external cause